=== PATIENT | female | born 1940 | race Hispanic/Latino ===

== ENCOUNTER → 2019-02-06 | Outpatient (CLI) | payer OTHER | END | disposition home or self-care (01) | LOC: RAH 10:41 | PROVIDERS: ATTEND Internal Medicine | DX: M85.862 Other specified disorders of bone density and structure, left lower leg (principal); M25.862 Other specified joint disorders, left knee | CPT/HCPCS: 73562 ==

== ENCOUNTER 2019-03-03 12:48 | Emergency (ER) | payer OTHER | END 2019-03-03 14:31 | disposition home or self-care (01) | LOC: EDH 12:48 | DX: M25.562 Pain in left knee (principal); I10 Essential (primary) hypertension; E03.9 Hypothyroidism, unspecified; E11.9 Type 2 diabetes mellitus without complications; M19.90 Unspecified osteoarthritis, unspecified site; Z98.890 Other specified postprocedural states | CPT/HCPCS: 73562 ==

== ENCOUNTER 2019-04-04 16:58 | Emergency (ER) | payer OTHER ==
[2019-04-04] MEDS ORDERED: KETOROLAC TROMETHAMINE 30MG/ML ONE (17:43)
[2019-04-04] MEDS ORDERED: ONDANSETRON HCL 4 MG/2 ML VIAL ONE (17:43)
[2019-04-04] MEDS ORDERED: MORPHINE SULFATE 4 MG/1ML SYG ONE (17:44)
== END 2019-04-04 18:56 | disposition home or self-care (01) ==
LOC: EDH 16:58
DX: S43.004A Unspecified dislocation of right shoulder joint, initial encounter (principal); I10 Essential (primary) hypertension; E11.9 Type 2 diabetes mellitus without complications; E03.9 Hypothyroidism, unspecified; M19.90 Unspecified osteoarthritis, unspecified site; W22.8XXA Striking against or struck by other objects, initial encounter; Y93.89 Activity, other specified; Y92.89 Other specified places as the place of occurrence of the external cause; Y99.8 Other external cause status
CPT/HCPCS: 23650; 71045; 73030 ×2; 96374; 96375; 99284; J1885; J2270; J2405

== ENCOUNTER → 2019-09-04 | Outpatient (CLI) | payer OTHER ==
[~2019-09-04] MED LIST: AEC81 PO; AMLO10TA7 PO; GLIP5TAB11 PO; HYDR-4457 PO; HYDR12.54 PO; IRBE300T19 PO; LEVO100T6 PO; METF-446 PO; PREG100C55 PO
== END | disposition home or self-care (01) ==
LOC: RAH 09:10
PROVIDERS: ATTEND Internal Medicine
DX: K76.0 Fatty (change of) liver, not elsewhere classified (principal); K80.20 Calculus of gallbladder without cholecystitis without obstruction; N26.1 Atrophy of kidney (terminal); R10.11 Right upper quadrant pain
CPT/HCPCS: 76705

== ENCOUNTER 2019-12-29 09:25 | Emergency (ER) | payer OTHER ==
[~2019-12-29 09:25] MED LIST changes: +IRBE300T18 PO; -IRBE300T19 PO
[2019-12-29 11:02] LABS: BASOPHILS % (AUTO) 0.3 % (0.0-5.0); EOSINOPHILS % (AUTO) 3.1 % (0.0-8.0); HEMATOCRIT 33.5 % (36-48); LYMPHOCYTES % (AUTO) 19.6 % (21.0-51.0); MEAN CORPUSCULAR HEMOGLOBIN 27.1 pg (27.0-33.0); MEAN CORPUSCULAR HGB CONC 31.9 g/dL (32.0-36.0); MEAN CORPUSCULAR VOLUME 84.8 fL (79-99); MONOCYTES % (AUTO) 4.1 % (3.0-13.0); NEUTROPHILS % (AUTO) 71.9 % (40.0-77.0); PLATELET COUNT (AUTO) 325 K/uL (130-400); RED BLOOD CELL COUNT(AUTO) 3.95 MIL/uL (4.00-5.50); RED CELL DISTRIBUTION WIDTH 14.5 % (11.0-15.5); WHITE BLOOD COUNT (AUTO) 15.3 K/uL (4.8-10.8)
[2019-12-29 11:26] LABS: CREATININE 1.2 mg/dL (0.5-1.5); POTASSIUM 4.4 mmol/L (3.5-5.1)
[2019-12-29 11:31] LABS: ALBUMIN 2.4 g/dL (3.5-5.0); BILIRUBIN,TOTAL 0.4 mg/dL (0.2-1.0)
== END 2019-12-29 12:42 | disposition home or self-care (01) ==
LOC: EDH 09:25
DX: K80.20 Calculus of gallbladder without cholecystitis without obstruction (principal); K52.9 Noninfective gastroenteritis and colitis, unspecified; E11.9 Type 2 diabetes mellitus without complications; M19.90 Unspecified osteoarthritis, unspecified site; E03.9 Hypothyroidism, unspecified
CPT/HCPCS: 36415; 74176; 76705; 80053; 83690; 85025

== ENCOUNTER → 2020-01-24 | Outpatient (CLI) | payer OTHER | END | disposition home or self-care (01) | LOC: RAH 08:42 | PROVIDERS: ATTEND Internal Medicine | DX: Z01.818 Encounter for other preprocedural examination (principal); M47.814 Spondylosis without myelopathy or radiculopathy, thoracic region; I70.0 Atherosclerosis of aorta ==

== ENCOUNTER 2020-03-08 21:29 | Inpatient (IN) | payer OTHER ==
[~2020-03-08] VITALS: Ht 154.9 cm; Wt 77.2 kg
[2020-03-08 22:15] LABS: BILIRUBIN,URINE Negative (NEGATIVE); COLOR,URINE Yellow (YELLOW); GLUCOSE, URINE (UA) 250 mg/dL (NEGATIVE); KETONES,URINE Negative (NEGATIVE); LEUKOCYTE ESTERASE ,URINE Large (NEGATIVE); NITRATE,URINE Negative (NEGATIVE); OCCULT BLOOD,URINE Large (NEGATIVE); PROTEIN,URINE POS 1+ mg/dL (NEGATIVE)
[2020-03-08 22:21] LABS: APPEARANCE,URINE CLOUDY (CLEAR)
[2020-03-08 22:23] LABS: BASOPHILS % (AUTO) 0.3 % (0.0-5.0); EOSINOPHILS % (AUTO) 0.3 % (0.0-8.0); HEMATOCRIT 30.1 % (36-48); LYMPHOCYTES % (AUTO) 25.2 % (21.0-51.0); MEAN CORPUSCULAR HEMOGLOBIN 25.8 pg (27.0-33.0); MEAN CORPUSCULAR HGB CONC 30.9 g/dL (32.0-36.0); MEAN CORPUSCULAR VOLUME 83.4 fL (79-99); MONOCYTES % (AUTO) 10.7 % (3.0-13.0); NUCLEATED RED BLOOD CELLS 0.8 % (0.0-0.19); PLATELET COUNT (AUTO) 574 K/uL (130-400); RED BLOOD CELL COUNT(AUTO) 3.61 MIL/uL (4.00-5.50); RED CELL DISTRIBUTION WIDTH 16.5 % (11.0-15.5); WHITE BLOOD COUNT (AUTO) 11.6 K/uL (4.8-10.8)
[2020-03-08] MEDS ORDERED: ONDANSETRON HCL 4 MG/2 ML VIAL ONE (22:28)
[2020-03-08] MEDS ORDERED: MORPHINE SULFATE 4 MG/1ML SYG ONE (22:29)
[2020-03-08 22:35] LABS: CREATININE 1.5 mg/dL (0.5-1.5); POTASSIUM 4.2 mmol/L (3.5-5.1)
[2020-03-08 22:40] LABS: ALBUMIN 1.9 g/dL (3.5-5.0); BILIRUBIN,TOTAL 0.3 mg/dL (0.2-1.0); TOTAL PROTEIN, SERUM 7.1 g/dL (6.0-8.3)
[2020-03-08 22:49] LABS: BACTERIA,URINE Many /HPF (None Seen); WBC,URINE 26-50 /HPF (0-1)
[2020-03-08 22:50] LABS: YEAST,URINE BUDDING Few /HPF (None Seen)
[2020-03-09] VITALS (7 sets, daily range): BP systolic 144–169; BP diastolic 48–62
[2020-03-09] MEDS ORDERED: FAMOTIDINE/PF 20 MG/2 ML VIAL IV ONE (01:33)
[2020-03-09] MEDS: MORPHINE SULFATE 2 MG/ML 1ML SYG IVP PRN ×2 (04:44→23:20)
[2020-03-09] MEDS: ONDANSETRON HCL 4 MG/2 ML VIAL IVP PRN (04:44)
[2020-03-09] MEDS: SODIUM CHLORIDE 0.9% 1000ML 1,000 ML IV SCH ×3 (04:45→20:49)
[2020-03-09] MEDS ORDERED: ONDA8TAB12 PO (07:00)
[2020-03-09] MEDS ORDERED: PANT40TA25 PO (07:00)
[2020-03-09] MEDS ORDERED: LEVO100T4 PO (07:39)
[2020-03-09] MEDS ORDERED: FERS325 PO (07:39)
[2020-03-09] MEDS ORDERED: PREG100C55 PO (07:39)
[2020-03-09] MEDS ORDERED: IRON150C5 PO (07:39)
[2020-03-09] MEDS ORDERED: HYDR12.54 PO (07:39)
[2020-03-09] MEDS ORDERED: AMLO10TA7 PO (07:39)
[2020-03-09] MEDS ORDERED: ATOR10 PO (07:39)
[2020-03-09] MEDS ORDERED: OMEP40CA13 PO (07:39)
[2020-03-09] MEDS ORDERED: IRBE300T18 PO (07:39)
[2020-03-09] MEDS: FAMOTIDINE/PF 20 MG/2 ML VIAL IV SCH ×2 (08:45→20:49)
[2020-03-10 03:32] VITALS: BP 150/54
[2020-03-10] MEDS: MORPHINE SULFATE 2 MG/ML 1ML SYG IVP PRN ×3 (04:57→22:10)
[2020-03-10] MEDS: SODIUM CHLORIDE 0.9% 1000ML 1,000 ML IV SCH ×2 (05:56→10:35)
[2020-03-10 07:28] LABS: HEMATOCRIT 23.3 % (36-48); MEAN CORPUSCULAR HEMOGLOBIN 26.3 pg (27.0-33.0); MEAN CORPUSCULAR HGB CONC 31.3 g/dL (32.0-36.0); MEAN CORPUSCULAR VOLUME 83.8 fL (79-99); NUCLEATED RED BLOOD CELLS 0.2 % (0.0-0.19); PLATELET COUNT (AUTO) 405 K/uL (130-400); RED BLOOD CELL COUNT(AUTO) 2.78 MIL/uL (4.00-5.50); RED CELL DISTRIBUTION WIDTH 17.1 % (11.0-15.5); WHITE BLOOD COUNT (AUTO) 11.8 K/uL (4.8-10.8)
[2020-03-10 07:40] LABS: CREATININE 0.8 mg/dL (0.5-1.5); POTASSIUM 3.4 mmol/L (3.5-5.1)
[2020-03-10 07:59] LABS: BAND NEUTROPHILS % (MANUAL) 4 % (0-2); EOSINOPHILS % (MANUAL) 1 % (1-6); LYMPHOCYTES % (MANUAL) 11 % (22-44); MONOCYTES % (MANUAL) 7 % (2-9); SEGMENTED NEUTROPHILS % 77 % (40-70)
[2020-03-10 08:00] LABS: PLATELET MORPHOLOGY COMMENT SLIGHT INCREASED
[2020-03-10 08:22] VITALS: BP 136/54
[2020-03-10] MEDS: FAMOTIDINE/PF 20 MG/2 ML VIAL IV SCH ×2 (08:49→19:32)
[2020-03-10 11:24] VITALS: BP 135/47
[2020-03-10] MEDS ORDERED: SODIUM CHLORIDE 0.9% 100 ML IV ONE (12:15)
[2020-03-10] MEDS ORDERED: LIDOCAINE HCL-MPF 1% 2ML VIAL IV PRN (14:00)
[2020-03-10 16:17] VITALS: BP 165/55
[2020-03-10 19:27] VITALS: BP 167/61
[2020-03-10] MEDS: POTASSIUM CHLORIDE 20MEQ/100ML 100 ML IV PRN (19:33)
[2020-03-10 19:40] LABS: HEMATOCRIT 31.9 % (36-48); MEAN CORPUSCULAR HEMOGLOBIN 26.9 pg (27.0-33.0); MEAN CORPUSCULAR HGB CONC 32.6 g/dL (32.0-36.0); MEAN CORPUSCULAR VOLUME 82.4 fL (79-99); PLATELET COUNT (AUTO) 333 K/uL (130-400); RED BLOOD CELL COUNT(AUTO) 3.87 MIL/uL (4.00-5.50); RED CELL DISTRIBUTION WIDTH 15.8 % (11.0-15.5); WHITE BLOOD COUNT (AUTO) 11.8 K/uL (4.8-10.8)
[2020-03-10 20:23] LABS: BAND NEUTROPHILS % (MANUAL) 4 % (0-2); EOSINOPHILS % (MANUAL) 2 % (1-6); LYMPHOCYTES % (MANUAL) 14 % (22-44); MONOCYTES % (MANUAL) 7 % (2-9); SEGMENTED NEUTROPHILS % 73 % (40-70)
[2020-03-10 20:24] LABS: MAN.DIFF COMMENT-IMPRESSION MANUAL DIFFERENTIAL; PLATELET MORPHOLOGY COMMENT ADEQUATE
[2020-03-10 23:38] VITALS: BP 163/70
[2020-03-11 03:46] VITALS: BP 159/68
[2020-03-11] MEDS: SODIUM CHLORIDE 0.9% 1000ML 1,000 ML IV SCH ×3 (06:00→20:56)
[2020-03-11 08:00] VITALS: BP 153/65
[2020-03-11] MEDS: MORPHINE SULFATE 2 MG/ML 1ML SYG IVP PRN (09:51)
[2020-03-11] MEDS: FAMOTIDINE/PF 20 MG/2 ML VIAL IV SCH ×2 (09:54→20:55)
[2020-03-11 11:21] VITALS: BP 172/60
[2020-03-11 16:00] VITALS: BP 188/69
[2020-03-11 21:34] VITALS: BP 156/63
[2020-03-12] VITALS (7 sets, daily range): BP systolic 144–185; BP diastolic 55–75
[2020-03-12] MEDS: MORPHINE SULFATE 2 MG/ML 1ML SYG IVP PRN ×2 (03:31→07:31)
[2020-03-12] MEDS: SODIUM CHLORIDE 0.9% 1000ML 1,000 ML IV SCH ×2 (08:00→18:19)
[2020-03-12] MEDS: FAMOTIDINE/PF 20 MG/2 ML VIAL IV SCH ×2 (09:00→19:52)
[2020-03-12] MEDS ORDERED: TRAMADOL HCL 50 MG TABLET PO PRN (11:45)
[2020-03-12] MEDS ORDERED: KETOROLAC TROMETHAMINE 15MG/ML IV PRN (15:30)
[2020-03-13] VITALS (11 sets, daily range): BP systolic 95–150; BP diastolic 32–64
[2020-03-13] MEDS ORDERED: HYDRALAZINE HCL 20 MG/ML VIAL ONE (03:42)
[2020-03-13] MEDS ORDERED: HYDRALAZINE HCL 20 MG/ML VIAL IV PRN (03:45)
[2020-03-13] MEDS: SODIUM CHLORIDE 0.9% 1000ML 1,000 ML IV SCH ×3 (04:17→19:57)
[2020-03-13] MEDS: FAMOTIDINE/PF 20 MG/2 ML VIAL IV SCH ×2 (09:00→19:40)
[2020-03-13] MEDS: MORPHINE SULFATE 2 MG/ML 1ML SYG IVP PRN ×2 (11:47→15:45)
[2020-03-13] MEDS: ONDANSETRON HCL 4 MG/2 ML VIAL IVP PRN (13:17)
[2020-03-13] MEDS ORDERED: NALOXONE HCL 0.4 MG/1 ML ML ONE (16:08)
[2020-03-13 16:13] LABS: ABG BASE EXCESS -27.7 mmol/L (-2.0-3.0); ABG HCO3 3.7 mmol/L (21.0-28.0); ABG OXYGEN SATURATION 97.9 % (95.0-99.0); ABG PCO2 18 mmHg (32-45)
[2020-03-13] MEDS ORDERED: SODIUM BICARB 50MEQ 50ML VIAL ONE (16:43)
[2020-03-13] MEDS ORDERED: CALCIUM CHLORIDE 100 MG/ML 10 ML SYG IVP SCH (16:45)
[2020-03-13] MEDS ORDERED: SODIUM BICARB 50MEQ 50ML VIAL IV STA (16:52)
[2020-03-13 17:05] LABS: HEMATOCRIT 35.3 % (36-48); MEAN CORPUSCULAR HEMOGLOBIN 26.7 pg (27.0-33.0); MEAN CORPUSCULAR HGB CONC 31.4 g/dL (32.0-36.0); MEAN CORPUSCULAR VOLUME 84.9 fL (79-99); NUCLEATED RED BLOOD CELLS 0.2 % (0.0-0.19); RED BLOOD CELL COUNT(AUTO) 4.16 MIL/uL (4.00-5.50); RED CELL DISTRIBUTION WIDTH 16.5 % (11.0-15.5); WHITE BLOOD COUNT (AUTO) 11.1 K/uL (4.8-10.8)
[2020-03-13 17:27] LABS: BILIRUBIN,TOTAL 0.5 mg/dL (0.2-1.0); CREATININE 1.6 mg/dL (0.5-1.5); POTASSIUM 3.5 mmol/L (3.5-5.1); TOTAL PROTEIN, SERUM 4.9 g/dL (6.0-8.3)
[2020-03-13] MEDS ORDERED: ROCURONIUM 10MG/1ML SYR 10 MG/ML ML ONE ×2 (17:30→21:51)
[2020-03-13] MEDS ORDERED: KETAMINE 50MG/ML SYRINGE 50 MG/ML DISP.SYRIN IV ONE (17:30)
[2020-03-13] MEDS ORDERED: SUCCINYLCHOLINE CHLORIDE 20 MG/ML 10 ML VIAL ONE (17:30)
[2020-03-13] MEDS ORDERED: ETOMIDATE 2 MG/ML 10 ML VIAL ONE (17:30)
[2020-03-13] MEDS ORDERED: LIDOCAINE PF 2% 5ML ABBOJECT ONE (17:30)
[2020-03-13] MEDS ORDERED: PROPOFOL 10 MG/ML 20ML VIAL IV ONE (17:32)
[2020-03-13] MEDS ORDERED: FENTANYL CITRATE PF 50 MCG/1 ML 2ML VIAL ONE ×2 (17:34→18:59)
[2020-03-13] MEDS ORDERED: SODIUM BICARB 8.4% 50ML SYRINGE ONE ×2 (17:44→22:00)
[2020-03-13] MEDS ORDERED: CALCIUM CHLORIDE 1,000 MG in SODIUM CHLORIDE 0.9% 50 ML IVP ONE (18:00)
[2020-03-13] MEDS ORDERED: NOREPINEPHRINE 4MG/NS 250ML 250 ML IV ONE (18:29)
[2020-03-13] MEDS ORDERED: MIDAZOLAM 50MG-0.9% NS 50ML 50 ML BAG IV SCH (18:30)
[2020-03-13] MEDS ORDERED: NOREPINEPHRINE BITARTRATE 32 MG in SODIUM CHLORIDE 0.9% 250 ML IV SCH (18:30)
[2020-03-13] MEDS ORDERED: LACTATED RINGERS 1000ML 1,000 ML IV ONE (18:30)
[2020-03-13] MEDS ORDERED: FENTANYL CITRATE PF 0.05 MG/ML 1,000 MCG in SODIUM CHLORIDE 0.9% 100 ML IVPB SCH (18:30)
[2020-03-13] MEDS ORDERED: SODIUM BICARB 8.4% 50ML SYRINGE IVP SCH (18:45)
[2020-03-13 18:46] LABS: ABG BASE EXCESS -14.7 mmol/L (-2.0-3.0); ABG HCO3 11.8 mmol/L (21.0-28.0); ABG OXYGEN SATURATION 97.9 % (95.0-99.0); ABG PCO2 30 mmHg (32-45)
[2020-03-13] MEDS ORDERED: MIDAZOLAM 100MG-0.9% NS 100ML 100 ML IV SCH (19:00)
[2020-03-13] MEDS ORDERED: CALCIUM GLUCONATE 1 GM/10 ML VIAL IV ONE (19:12)
[2020-03-13] MEDS ORDERED: DEXTROSE 50%-WATER 25 GM/50 ML VIAL ONE (19:13)
[2020-03-13 19:33] LABS: TROPONIN I 0.07 ng/mL (0.00-0.06)
[2020-03-13] MEDS: ZOSYN 3.375GM+NS 50ML 50 ML IV SCH (19:33)
[2020-03-13] MEDS: POTASSIUM CHLORIDE 20MEQ/100ML 100 ML IV PRN ×3 (19:44→23:59)
[2020-03-13] MEDS ORDERED: DEXTROSE 10%-WATER 1,000 ML IV SCH (19:45)
[2020-03-13] MEDS: SODIUM BICARB 8.4% 50ML SYRING 150 MEQ in DEXTROSE 5%-WATER 1,000 ML IV SCH (19:49)
[2020-03-13] MEDS ORDERED: LACTATED RINGERS 1000ML IV SCH (20:00)
[2020-03-13] MEDS: METRONIDAZOLE 500MG/100ML BAG 100 ML IV SCH (21:09)
[2020-03-13] MEDS ORDERED: ALBUMIN (HUMAN) 5% 500 ML IV ONE (21:42)
[2020-03-13 22:12] LABS: ABG BASE EXCESS -17.8 mmol/L (-2.0-3.0); ABG OXYGEN SATURATION 98.4 % (95.0-99.0); ABG PCO2 37 mmHg (32-45)
[2020-03-13 23:36] LABS: ABG BASE EXCESS -10.4 mmol/L (-2.0-3.0); ABG HCO3 15.2 mmol/L (21.0-28.0); ABG OXYGEN SATURATION 90.8 % (95.0-99.0); ABG PCO2 33 mmHg (32-45)
[2020-03-14] VITALS (25 sets, daily range): BP systolic 91–156; BP diastolic 26–76
[2020-03-14] MEDS ORDERED: PHARMACY COMMUNICATION MISC SCH
[2020-03-14] MEDS: POTASSIUM CHLORIDE 20MEQ/100ML 100 ML IV PRN ×3 (01:01→09:42)
[2020-03-14] MEDS: ZOSYN 3.375GM+NS 50ML 50 ML IV SCH ×3 (01:01→18:43)
[2020-03-14] MEDS ORDERED: MAGNESIUM 2GM PREMIX 50ML 50 ML IV PRN (01:15)
[2020-03-14] MEDS ORDERED: MAGNESIUM 2GM PREMIX 50ML 50 ML IV ONE (01:18)
[2020-03-14] MEDS: SODIUM BICARB 8.4% 50ML SYRING 150 MEQ in DEXTROSE 5%-WATER 1,000 ML IV SCH ×4 (03:12→21:36)
[2020-03-14] MEDS ORDERED: SODIUM BICARB 50MEQ 50ML VIAL ONE (04:32)
[2020-03-14 05:16] LABS: HEMATOCRIT 28.4 % (36-48); MEAN CORPUSCULAR HEMOGLOBIN 26.2 pg (27.0-33.0); MEAN CORPUSCULAR HGB CONC 31.7 g/dL (32.0-36.0); MEAN CORPUSCULAR VOLUME 82.8 fL (79-99); RED BLOOD CELL COUNT(AUTO) 3.43 MIL/uL (4.00-5.50); RED CELL DISTRIBUTION WIDTH 16.7 % (11.0-15.5); WHITE BLOOD COUNT (AUTO) 14.7 K/uL (4.8-10.8)
[2020-03-14 05:45] LABS: ALBUMIN 1.2 g/dL (3.5-5.0); BILIRUBIN,TOTAL 0.5 mg/dL (0.2-1.0); CREATININE 1.5 mg/dL (0.5-1.5); MAGNESIUM 1.7 mg/dL (1.80-2.40); POTASSIUM 3.4 mmol/L (3.5-5.1); TOTAL PROTEIN, SERUM 3.7 g/dL (6.0-8.3)
[2020-03-14] MEDS: METRONIDAZOLE 500MG/100ML BAG 100 ML IV SCH ×3 (06:00→20:35)
[2020-03-14 07:14] LABS: ABG BASE EXCESS -9.5 mmol/L (-2.0-3.0); ABG HCO3 13.2 mmol/L (21.0-28.0); ABG OXYGEN SATURATION 90.5 % (95.0-99.0); ABG PCO2 23 mmHg (32-45)
[2020-03-14] MEDS ORDERED: PANTOPRAZOLE 40 MG/VIAL IVP SCH (09:00)
[2020-03-14] MEDS: FENTANYL 2500MCG+NS 250ML 250 ML IV SCH (09:07)
[2020-03-14] MEDS: FAMOTIDINE/PF 20 MG/2 ML VIAL IV SCH ×2 (09:41→20:25)
[2020-03-14] MEDS: FLUCONAZOLE 200 MG/NS 100 ML 100 ML IV SCH (09:41)
[2020-03-14 10:18] LABS: ABG HCO3 13.9 mmol/L (21.0-28.0); ABG PCO2 26 mmHg (32-45)
[2020-03-14] MEDS: VASOPRESSIN 40 UNITS in SODIUM CHLORIDE 0.9% 40 ML IV SCH ×2 (13:00→20:17)
[2020-03-14 14:18] LABS: ABG BASE EXCESS -10.5 mmol/L (-2.0-3.0); ABG HCO3 13.7 mmol/L (21.0-28.0); ABG OXYGEN SATURATION 95.3 % (95.0-99.0); ABG PCO2 26 mmHg (32-45)
[2020-03-14] MEDS ORDERED: SODIUM CHLORIDE 0.9% 100 ML IV ONE (15:55)
[2020-03-14] MEDS ORDERED: CALCIUM GLUCONATE 1 GM/10 ML VIAL IV SCH (16:30)
[2020-03-14] MEDS: LINEZOLID 600 MG/ISO-OSM 300 ML IV SCH (22:42)
[2020-03-14 22:57] LABS: ABG BASE EXCESS -11.6 mmol/L (-2.0-3.0); ABG HCO3 13.6 mmol/L (21.0-28.0); ABG OXYGEN SATURATION 93.4 % (95.0-99.0); ABG PCO2 29 mmHg (32-45)
[2020-03-15] VITALS (22 sets, daily range): BP systolic 91–159; BP diastolic 23–47
[2020-03-15] MEDS: ZOSYN 3.375GM+NS 50ML 50 ML IV SCH ×3 (02:09→16:19)
[2020-03-15 04:15] LABS: ABG BASE EXCESS -14.1 mmol/L (-2.0-3.0); ABG HCO3 11.8 mmol/L (21.0-28.0); ABG OXYGEN SATURATION 91.8 % (95.0-99.0); ABG PCO2 28 mmHg (32-45)
[2020-03-15] MEDS: METRONIDAZOLE 500MG/100ML BAG 100 ML IV SCH ×2 (06:41→12:50)
[2020-03-15] MEDS: SODIUM BICARB 8.4% 50ML SYRING 150 MEQ in DEXTROSE 5%-WATER 1,000 ML IV SCH ×4 (06:48→23:10)
[2020-03-15 07:11] LABS: BASOPHILS % (AUTO) 0.1 % (0.0-5.0); EOSINOPHILS % (AUTO) 0.4 % (0.0-8.0); HEMATOCRIT 30.6 % (36-48); LYMPHOCYTES % (AUTO) 7.6 % (21.0-51.0); MEAN CORPUSCULAR HEMOGLOBIN 26.5 pg (27.0-33.0); MEAN CORPUSCULAR HGB CONC 31.4 g/dL (32.0-36.0); MEAN CORPUSCULAR VOLUME 84.5 fL (79-99); MONOCYTES % (AUTO) 1.8 % (3.0-13.0); NEUTROPHILS % (AUTO) 85.2 % (40.0-77.0); NUCLEATED RED BLOOD CELLS 0.2 % (0.0-0.19); PLATELET COUNT (AUTO) 133 K/uL (130-400); RED BLOOD CELL COUNT(AUTO) 3.62 MIL/uL (4.00-5.50); RED CELL DISTRIBUTION WIDTH 17.6 % (11.0-15.5); WHITE BLOOD COUNT (AUTO) 26.2 K/uL (4.8-10.8)
[2020-03-15 07:20] LABS: CREATININE 1.9 mg/dL (0.5-1.5); MAGNESIUM 1.7 mg/dL (1.80-2.40); POTASSIUM 3.8 mmol/L (3.5-5.1)
[2020-03-15] MEDS: FENTANYL 2500MCG+NS 250ML 250 ML IV SCH (08:22)
[2020-03-15] MEDS: FAMOTIDINE/PF 20 MG/2 ML VIAL IV SCH (08:41)
[2020-03-15] MEDS: FLUCONAZOLE 200 MG/NS 100 ML 100 ML IV SCH (08:41)
[2020-03-15 08:49] LABS: ABG BASE EXCESS -13.7 mmol/L (-2.0-3.0); ABG HCO3 12.5 mmol/L (21.0-28.0); ABG OXYGEN SATURATION 87.1 % (95.0-99.0); ABG PCO2 31 mmHg (32-45)
[2020-03-15] MEDS: LINEZOLID 600 MG/ISO-OSM 300 ML IV SCH (10:14)
[2020-03-15] MEDS ORDERED: SODIUM CHLORIDE 0.9% 1000ML 1,000 ML IV ONE (10:18)
[2020-03-15 13:49] LABS: ABG BASE EXCESS -15.8 mmol/L (-2.0-3.0); ABG HCO3 10.6 mmol/L (21.0-28.0); ABG OXYGEN SATURATION 90.8 % (95.0-99.0); ABG PCO2 27 mmHg (32-45)
[2020-03-15] MEDS ORDERED: ROCURONIUM 10MG/1ML SYR 10 MG/ML ML ONE (17:59)
[2020-03-15] MEDS ORDERED: FENTANYL CITRATE PF 50 MCG/1 ML 5ML AMP IV ONE (18:39)
[2020-03-16] VITALS (13 sets, daily range): BP systolic 81–125; BP diastolic 27–41
[2020-03-16] MEDS: SODIUM BICARB 8.4% 50ML SYRING 150 MEQ in DEXTROSE 5%-WATER 1,000 ML IV SCH ×2 (01:12→09:14)
[2020-03-16] MEDS ORDERED: PHENYLEPHRINE HCL 10 MG in SODIUM CHLORIDE 0.9% 250 ML IV PRN (08:30)
[2020-03-16] MEDS ORDERED: MORPHINE SULFATE 2 MG/ML 1ML SYG IM PRN (11:00)
== END 2020-03-16 12:58 | disposition expired | DRG 853 ==
LOC: EDH 21:29 → EDHIP 22:25 → 3DH 23:51 → DAHIP 03-13 17:19
PROVIDERS: ADMIT Internal Medicine Hematology & Oncology; ATTEND Internal Medicine Hematology & Oncology
PROC: 30233N1 Transfusion of Nonautologous Red Blood Cells into Peripheral Vein, Percutaneous Approach (ICD-10-PCS; principal; 2020-03-10)
PROC: 5A1945Z Respiratory Ventilation, 24-96 Consecutive Hours (ICD-10-PCS; 2020-03-10)
PROC: 0BH17EZ Insertion of Endotracheal Airway into Trachea, Via Natural or Artificial Opening (ICD-10-PCS; 2020-03-10)
PROC: 0DBA0ZZ Excision of Jejunum, Open Approach (ICD-10-PCS; 2020-03-13)
PROC: 0DBB0ZZ Excision of Ileum, Open Approach (ICD-10-PCS; 2020-03-13 21:53)
PROC: 0DJD0ZZ Inspection of Lower Intestinal Tract, Open Approach (ICD-10-PCS; 2020-03-15)
DX: A41.9 Sepsis, unspecified organism (principal); J96.91 Respiratory failure, unspecified with hypoxia; K63.1 Perforation of intestine (nontraumatic); R65.21 Severe sepsis with septic shock; K55.029 Acute infarction of small intestine, extent unspecified; K56.609 Unspecified intestinal obstruction, unspecified as to partial versus complete obstruction; C23 Malignant neoplasm of gallbladder; E87.0 Hyperosmolality and hypernatremia; N39.0 Urinary tract infection, site not specified; E66.9 Obesity, unspecified; E11.649 Type 2 diabetes mellitus with hypoglycemia without coma; I10 Essential (primary) hypertension; Z51.5 Encounter for palliative care; Z66 Do not resuscitate; M19.90 Unspecified osteoarthritis, unspecified site; Z83.3 Family history of diabetes mellitus; Z85.05 Personal history of malignant neoplasm of liver; Z85.09 Personal history of malignant neoplasm of other digestive organs; Z98.42 Cataract extraction status, left eye; Z98.41 Cataract extraction status, right eye; Z90.49 Acquired absence of other specified parts of digestive tract; Z20.828 Contact with and (suspected) exposure to other viral communicable diseases
CPT/HCPCS: 31500; 36415; 36600; 71045; 74018; 74176; 80048; 80053; 81001; 82435; 82550; 82803; 82947; 82948; 83605; 83690; 83735; 83874; 84132; 84295; 84484; 85018; 85025; 85027; 86850; 86900; 86901; 86922; 87040; 87070; 87076; 87077; 87088; 87186; 87205; 87426; 88305; 88307; 93005; 94002; 94003; C9113; G0378; J0330; J0360; J0610; J1450; J2001; J2020; J2270; J2310; J2370; J2405; J2543; J2704; J3010; J3475; J3480; J3490; J7030; J7050; J7070; J7120; P9016; P9045; U0003